=== PATIENT | female | born 1945 | race Hispanic/Latino ===

== ENCOUNTER → 2023-08-09 | Outpatient (CLI) | payer OTHER | END | disposition home or self-care (01) | LOC: RAH 09:46 | PROVIDERS: ATTEND Internal Medicine Gastroenterology | DX: K94.20 Gastrostomy complication, unspecified (principal); Z98.890 Other specified postprocedural states | CPT/HCPCS: 74018 ==

== ENCOUNTER → 2023-09-17 | Outpatient (CLI) | payer OTHER | END | disposition home or self-care (01) | LOC: RAH 13:24 | PROVIDERS: ATTEND Internal Medicine Gastroenterology | DX: R13.10 Dysphagia, unspecified (principal); R63.30 Feeding difficulties, unspecified | CPT/HCPCS: 74230; 92611 ==

== ENCOUNTER → 2024-01-16 | Outpatient (CLI) | payer OTHER ==
[~2024-01-16] MED LIST: DIATR MEGLU/DIATRIZOATE SODIUM 30 ML BOTTLE ONE
== END | disposition home or self-care (01) ==
LOC: RAH 09:48
PROVIDERS: ATTEND Internal Medicine Gastroenterology
DX: R14.0 Abdominal distension (gaseous) (principal); K63.89 Other specified diseases of intestine; K94.20 Gastrostomy complication, unspecified; M47.815 Spondylosis without myelopathy or radiculopathy, thoracolumbar region
CPT/HCPCS: 74018; Q9963

== ENCOUNTER → 2024-08-17 | Outpatient (CLI) | payer OTHER ==
--- NOTE | 2024-08-17 12:04 | HMCIMG ---
ABD 1VW REASON: ABD W/ Contrast for G-Tube placement FINDINGS: Single image of the abdomen was obtained. There is a PEG tube present within the stomach. Gastrografin is pooling in the gastric cardia and a small extent the antrum, there is no evidence of leak. IMPRESSION: 1. PEG tube present within the stomach.
== END | disposition home or self-care (01) ==
LOC: RAH 10:46
PROVIDERS: ATTEND Internal Medicine Gastroenterology
DX: Z93.1 Gastrostomy status (principal)
CPT/HCPCS: 74018; Q9963

== ENCOUNTER → 2025-02-10 | Outpatient (CLI) | payer OTHER ==
--- NOTE | 2025-02-10 15:22 | HMCIMG ---
ABD 1VW REASON: GASTROSTOMY STATUS FINDINGS: Single image of the abdomen was obtained. Gastrografin injection was performed. PEG tube. PEG tube retaining balloon is present within the stomach. There is Gastrografin the stomach and proximal duodenum without evidence of leak. IMPRESSION: 1. PEG tube retaining fluid present within the stomach.
== END | disposition home or self-care (01) ==
LOC: RAH 08:37
PROVIDERS: ATTEND Family Medicine
DX: R10.13 Epigastric pain (principal); Z93.1 Gastrostomy status
CPT/HCPCS: 74018; Q9963